=== PATIENT | female | born 1930 | race Caucasian/White ===

== ENCOUNTER → 2019-02-22 | Day surgery (SDC) | payer MEDICARE, OTHER ==
[2019-02-21 11:11] LABS: BASOPHILS % 0.9 % (0.0-1.0); EOSINOPHILS % 0.9 % (0.0-6.0); HEMATOCRIT 35.4 % (34.2-44.1); HEMOGLOBIN 11.7 g/dL (12.0-16.0); LYMPHOCYTES # (AUTO) 0.8 (1.0-3.2); LYMPHOCYTES % 19.1 % (18.0-39.1); MEAN CORPUSCULAR HEMOGLOBIN 29.5 pg (28-32); MEAN CORPUSCULAR HGB CONC 33.1 g/dL (31-35); MEAN CORPUSCULAR VOLUME 89.4 fL (81-99); MONOCYTES # (AUTO) 0.4 (0.2-0.8); MONOCYTES % 9.5 % (4.4-11.3); NEUTROPHILS % 68.9 % (38.7-80.0); PLATELET COUNT 283 x10e3/uL (140-360); RED BLOOD COUNT 3.96 x10e6/uL (3.6-5.1); RED CELL DISTRIBUTION WIDTH 11.9 % (11.7-14.4)
[~2019-02-22] MED LIST: ASPIRIN81 MG; BREO INH; FUROSEMIDE40 MG PO; LABETALOL HCL 5 MG/ML 20ML VIAL ONE; LEVOTHYROXINE50 MCG PO; LIDOCAINE HCL 2% LOCAL INJ 5 ML SDV VIAL INJ ONE; LOSARTAN POTAS100 MG PO; LOVASTATIN40 MG PO; METOPROLOL TART25 MG PO; MIDAZOLAM HCL 2 MG/2 ML VIAL ONE; OMEPRAZOLE40 MG PO; POTASSIUM CHLO10 ME1 PO; PROPOFOL IV EMULSION 10 MG/ML 20 ML VIAL ONE; VENTOLIN HFA18 GM INH; potassium chloride; spiriva respimat INH
--- OUTSIDE RECORDS SUMMARY | 2019-02-22 09:24 | XMS REPORT ---
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 Allergies, Adverse Reactions, Alerts This patient has no known allergies or adverse reactions. Medications This patient has no known medications. Results Test Description Test Time Test Comments Text Results Atomic Results Result Comments - CT CHEST W/O CONTRAST 2018-12-17 10:32:00 Name: LUIS MANUEL PRUITT [facility] : 1930 Age/S: 88 / F [address] [facility] Unit #: [id number] Loc: [place] [address] Phys: Jana Case MD Acct: [id number] Dis Date: Status: REG CLI PHONE #: [phone] Exam Date: 12/17/2018 0926 FAX #: [phone] Reason: DYSPNEA EXAMS: CPT CODE: [id number] CT CHEST W/O CONTRAST 78262 REASON FOR EXAM: DYSPNEA EXAM ORDER DATE: 12/17/2018 9:19 AM Ordering MShruthi: Jana Case MD PROCEDURE: - CT CHEST W/O CONTRAST FINDINGS: CT images of the chest were obtained without IV contrast. Reconstructed sagittal and coronal images of the chest were provided for interpretation. Dose modulation, iterative reconstruction, and/or weight based adjustment of the MA/KV was utilized to reduce the radiation dose to as low as reason ably achievable. The heart size is minimally enlarged. No evidence of pericardial effusion. Left subclavian pacemaker noted. 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 No evidence of mediastinal or hilar adenopathy. The lungs are clear. No evidence of pleural effusion. Nonspecific diffuse calcification of the proximal bronchi and of the trachea IMPRESSION: Small hiatal hernia. Multiple small (one CM) low-density lesions in the liver suggestive of hepatic cysts. Nons pecific small (subcentimeter) scar in the left upper lobe (image 20 series 3, image 64 series 602). at 1032 Reported and signed by: Alejandro King M.D. CC: Jana Case MD Technologist:Bridgett Brandt RT(R),CT CTDI: DLP: Trnscb Date/Time: 12/17/2018 (1032) Diana Orig Print D/T: S: 12/17/2018 (1035) CTDI: DLP: PAGE 1 Signed Report
[2019-02-22 12:20] VITALS: BP 158/72
== END | disposition home or self-care (01) ==
LOC: OR 09:15
PROVIDERS: ATTEND Internal Medicine Gastroenterology
DX: K59.00 Constipation, unspecified (principal); K31.7 Polyp of stomach and duodenum; K29.70 Gastritis, unspecified, without bleeding; K21.0 Gastro-esophageal reflux disease with esophagitis; K31.89 Other diseases of stomach and duodenum; K44.9 Diaphragmatic hernia without obstruction or gangrene; K22.8 Other specified diseases of esophagus; K64.8 Other hemorrhoids; Z71.3 Dietary counseling and surveillance; E66.9 Obesity, unspecified; I10 Essential (primary) hypertension; J44.9 Chronic obstructive pulmonary disease, unspecified; Z99.81 Dependence on supplemental oxygen; G47.33 Obstructive sleep apnea (adult) (pediatric); E03.9 Hypothyroidism, unspecified; I48.91 Unspecified atrial fibrillation; I44.7 Left bundle-branch block, unspecified; Z01.810 Encounter for preprocedural cardiovascular examination; Z01.812 Encounter for preprocedural laboratory examination; Z79.82 Long term (current) use of aspirin; Z68.31 Body mass index [BMI] 31.0-31.9, adult; Z87.891 Personal history of nicotine dependence
CPT/HCPCS: 36415; 43239; 45378; 85025; 93005; J2001; J2250; J2704; J3490